=== PATIENT | male | born 1950 | race Caucasian/White ===

== ENCOUNTER 2019-12-27 03:14 | Inpatient (IN) | payer MEDICARE, OTHER ==
[2019-12-27] VITALS (19 sets, daily range): BP systolic 110–167; BP diastolic 72–96
[~2019-12-27] VITALS: Ht 180.3 cm; Wt 136.1 kg
[2019-12-27] MEDS ORDERED: NS IV 1000 ML 0 ML ONE (04:56)
--- NOTE | 2019-12-27 05:25 | Diagnostic Imaging Report ---
Indication: Chest pain Portable chest 5:09 AM Heart size and pulmonary vascularity are normal. There may be some infiltrate or atelectasis of left lung base with questionable effusion. Right lung is clear. IMPRESSION: Questionable left basilar consolidation with effusion that could be pneumonia. Dictated by: Dictated on workstation # [id number]
[2019-12-27] MEDS: NS IV 1000 ML 1,000 ML IV SCH ×3 (05:29→21:53)
[2019-12-27] MEDS ORDERED: HEParin (CATH LAB) 2,000 ML IV ONE (09:24)
[2019-12-27] MEDS ORDERED: LIDOCAINE 1% INJ 20 ML 20 ML VIAL ONE (09:24)
[2019-12-27] MEDS ORDERED: NS IV 1000 ML 1,000 ML ONE (09:24)
[2019-12-27] MEDS ORDERED: fentaNYL INJECTION 100 MCG/2 ML AMP ONE (09:30)
[2019-12-27] MEDS ORDERED: MIDAZOLAM 5 MG/5 ML (VERSED) VIAL ONE (09:30)
[2019-12-27] MEDS ORDERED: VERAPAMIL 5 MG/2 ML (CALAN) VIAL IV ONE (09:30)
[2019-12-27] MEDS ORDERED: HEParin 1000 UNIT/ML (10ML VIAL) FOR BOLUS ONE (09:31)
[2019-12-27] MEDS ORDERED: NITRO DRIP 25000 MCG/D5W 250 ML IV ONE (09:31)
[2019-12-27] MEDS ORDERED: ADENOSINE 90 MG/30 ML (ADENOSCAN) VIAL IV ONE (10:25)
--- NOTE | 2019-12-27 10:57 | NUR ---
Patient to label stitcher approximately 0945. Report given to BISMARK Hernandez ICU step-down.
--- NOTE | 2019-12-27 11:50 | Consultation-Cardiology ---
HPI-Cardiology Cardiology Consultation: Date of Consultation 12/27/19 Date of Admission Attending Physician Radha Michele MD Admitting Physician Shawn Granda DO Consulting Physician Neto TAN MD HPI: Time Seen by a Provider: 09:00 Chief Complaint: Chest pain this is a 69-year-old gentleman with history of active smoking and morbid obesity. He has family history of CAD. He presents with prolonged episode of chest pain for 2 hours. Substernal. No significant radiation. No associated symptoms. No exacerbating or relieving factors. Moderate to severe intensity. Relieved when he got to [facility]. Review of Systems-Cardiology Review of Systems Constitutional: As described under HPI; No As described under HPI, No no symptoms reported, No chills, No fever, No lightheadedness Eyes: No As described under HPI, No no symptoms reported, No blindness, No blurred vision, No contact lenses, No drainage, No decreased acuity, No foreign body sensation, No pain, No vision change Ears/Nose/Throat: No As described under HPI, No no symptoms reported, No chronic hearing loss, No ear discharge, No ear pain, No nasal drainage, No ulcerations Respiratory: No no symptoms reported; As described under HPI; No As described under HPI, No cough, No orthopnea, No shortness of breath, No SOB with excertion Cardiovascular: No no symptoms reported; As described under HPI; No As described under HPI; chest pain; No edema, No irregular heart rate, No lightheadedness, No palpitations Gastrointestinal: No no symptoms reported, No As described under HPI, No abdomen distended, No abdominal pain, No blood streaked bowels, No constipation, No diarrhea, No nausea, No vomiting, No stool coloration changes Genitourinary: No As described under HPI, No burning, No dysuria, No discharge, No frequency, No flank pain, No hematuria, No urgency Skin: No rash, No skin related problems, No ulcerations Psychiatric/Neurological: No anxiety, No depression, No seizure, No focal weakness, No syncope Hematologic: No bleeding abnormalities VPR-[id number]-[id number] Hx Patient Social History Recent Foreign Travel: No Recent Infectious Disease Expo: No Immunizations Up To Date Date of Pneumonia Vaccine: Dec 11, 2019 Date of Influenza Vaccine: Dec 11, 2019 Past Medical History PMH As described under Assessment. Family Medical History Family History: Cardiovascular disease 19 FATHER, Onset:Unknown 19 MOTHER, Onset:Unknown Cataracts 19 MOTHER, Onset:Unknown Congenital heart disease Deafness or hearing loss 19 FATHER, Onset:60 years & older Dementia Diabetes mellitus 19 FATHER, Onset:Unknown G8 BROTHER, Onset:Unknown Glaucoma 19 MOTHER, Onset:Unknown Hypercholesterolemia G8 SISTER, Onset:40's - 50 Hypertension 19 FATHER, Onset:Unknown 19 MOTHER, Onset:Unknown Myocardial infarction 19 FATHER, Onset:50's - 60 Visual disorder 19 FATHER, Onset:Unknown Allergies and Home Medications Allergies Coded Allergies: No Known Allergies (Verified Allergy, Unknown, 12/27/19) Patient Home Medication List Home Medication List Reviewed: Yes Physical Exam-Cardiology Physical Exam Vital Signs/I&O 12/27/19 12/27/19 12/27/19 12/27/19 04:39 04:45 05:00 05:15 Temp 36.8 36.8 Pulse 68 69 61 61 Resp 20 20 B/P (MAP) 138/77 138/77 (97) 129/79 (96) 129/82 (98) Pulse Ox 95 95 O2 Delivery Nasal Cannula Nasal Cannula O2 Flow Rate 1.00 1.00 12/27/19 12/27/19 12/27/19 12/27/19 05:30 05:30 06:30 08:00 Temp 36.2 Pulse 61 62 60 Resp 20 B/P (MAP) 128/78 (95) 119/75 (90) 117/73 (88) Pulse Ox 92 O2 Delivery Nasal Cannula Nasal Cannula O2 Flow Rate 2.00 1.00 12/27/19 12/27/19 12/27/19 08:00 08:02 08:30 Temp 36.3 Pulse 53 61 Resp 18 B/P (MAP) 127/72 (90) Pulse Ox 95 O2 Delivery Nasal Cannula O2 Flow Rate 1.50 1.00 Capillary Refill : Less Than 3 Seconds Constitutional: appears stated age, AAO x 3; No apparent distress; well- developed, well-nourished HEENT: PERRL; No discharge; hearing is well preserved, oral hygience is good; No ulceration, No xanthelasmas are seen Neck: No carotid bruit; carotid pulses are 2 + bilaterally Respiratory: chest is bilaterally symmetric, lungs clear to auscultation Cardiovascular: regular rate-rhythm, S1 and S2; No diastolic murmur, No systolic murmur Gastrointestinal: soft, distended, audible bowel sounds; No spleenomegaly Rectal: deferred Extremities: normal range of motion, non-tender, normal inspection; No clubbing, No cyanosis; no lower extremity edema bilateral; No significant edema Neurologic/Psychiatric: no motor/sensory deficits, alert, normal mood/affect, oriented x 3, power is 5/5 both on sides Skin: normal color, warm/dry; No rash, No ulcerations Data Review Labs Laboratory Tests 12/27/19 07:58: Troponin I 1.449*H A/P-Cardiology Assessment/Admission Diagnosis NSTEMI, Morbid obesity, Active smoking Plan NSTEMI, coronary angiography and possible intervention is recommended. Informed consent was taken. I discussed at length all the risks and complication including . The patient accepted all risk and would like to proceed with coronary angiography and possible intervention. 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 Morbid obesity,defer to the primary team. Active smoking, smoking cessation was strongly recommended Thank you for your consultation. Please call me if you have any questions. Fredis Tan MD, FACP, FACC, FSCAI, FHRS, CCDS Interventional Cardiology Cardiac Electrophysiology Vascular Medicine and Endovascular Interventions Clinical Quality Measures DVT/VTE Risk/Contraindication: Risk Factor Score Per Nursin RFS Level Per Nursing on Admit: 4+=Very High Neto TAN MD Dec 27, 2019 11:50
--- NOTE | 2019-12-27 11:51 | Cardiac Procedure Note-CS/ASA ---
Pre-Procedure Note Pre-Op Procedure Note H&P Reviewed The H&P was reviewed, patient examined and no changes noted. Date H&P Reviewed: Dec 27, 2019 Time H&P Reviewed: 09:30 Conscious Sedation Pre-Proced Time 09:30 ASA Score 3 For ASA 3 and 4: Consider anesthesia and medical clearance. Also, for patients with a history of failed moderate sedation consider anesthesia. Airway Lungs Heart ASA score ASA 1: a normal healthy patient ASA 2: a patient with a mild systemic disease (mid diabetes, controlled hypertension, obesity ASA 3: a patient with a severe systemic disease that limits activity (angina, COPD, prior Myocardial infarction) ASA 4: a patient with an incapacitating disease that is a constant threat to life (CHF, renal failure) ASA 5: a moribund patient not expected to survive 24 hrs. (ruptured aneurysm) ASA 6: a declared brain- patient whose organs are being harvested. For emergent operations, add the letter E after the classification Mallampati Classification Grade 1 Sedation Plan Analgesia, Amnesia, Plan communicated to team members, Discussed options with patient/fam, Discussed risks with patient/fam The patient is an appropriate candidate to undergo the planned procedure, sedation, and anesthesia. The patient immediately re-assessed prior to indication. Neto CHEN MD Dec 27, 2019 11:51
--- NOTE | 2019-12-27 11:51 | Coronary Angiography & PCI ---
Coronary Angiography & PCI DATE OF PROCEDURE: 12/27/19 INDICATION: non-STEMI PREOPERATIVE DIAGNOSIS: non-STEMI POSTOPERATIVE DIAGNOSIS: severe ostial/mid LAD stenosis treated successfully with 2 drug-eluting stents. HISTORY: This is a 69-year-old gentleman with history of active smoking and family history. long episode of chest pain was positive troponin. Working diagnosis of non-STEMI. Therefore, the patient was scheduled for coronary angiography. PROCEDURES PERFORMED: 1.Coronary angiography. 2.Left heart catheterization. 3.PCI to the ostial LAD and mid LAD with 2 drug-eluting stents. 4. FFR to mid LAD COMPLICATIONS: None. SPECIMENS: None. ESTIMATED BLOOD LOSS: 10 mL ANESTHESIA: Conscious sedation ANTICOAGULATION: IV heparin CONTRAST: 253 mL. FLUOROSCOPY: 28.4 minutes. FLOUROSCOPY DOSE: 3449 mgy. PROCEDURE DETAILS: The patient is a 69 male and was brought to the lab associate after informed consent was taken. All the risks and complications were explained in detail; this included the risk of bleeding, vascular damage, stroke, KS and even . The patient was draped and prepped in the usual sterile fashion. Access was gained in the right radial artery with a 6 Croatian sheath. Coronary angiography and left heart catheterization was performed with the Cory catheter. we had difficulty engaging the left main with the Cory catheter however with significant manipulation we were able to engage the left main. FINDINGS: 1.Left main: patent. 2.LAD: severe ostial stenosis.stenosis severity 90 percent. Moderate to severe sequential mid LAD lesions with CLAUDIO 2 flow. 3.Left circumflex artery: patent. 4.RCA: large dominant RCA. Mild slow flow however no focal stenosis. Microvascular dysfunction. 5.Left heart catheterization: LV pressure 93/1 mmHg. LVEDP 3 mmHg. Aortic pressure 91/62 mmHg. Normal LV function with no wall motion abnormalities. No gradient across the aortic valve. RECOMMENDATIONS: PCI to ostial LAD is recommended. FFR to the mid LAD is recommended. INTERVENTION DETAILS: we first tried a JL 3.5 but were not able to engage the left main. We then went in with an EBU 3.5 guide however fever still unable to engage the left main. We finally engaged with a JL4 guide catheter. We then tried to cross the lesion with the pressure wire however we were not able to cross. We therefore used a whisper extra-support wire, and were able to cross the lesion. We put the tip of the wire in the distal LAD. Direct stenting of the ostial LAD with a Xience Felisha 3 x 18 mm drug-eluting stent at 16 radha for 22 seconds. excellent results with no residual stenosis. We then crossed the lesion in the mid LAD with the FFR wire and started at adenosine 140 g per KG per minute. Lowest FFR was 0.75 which is significant. The pressure wire was taken out. We tried to advance a Xience Felisha 2.5 x 28 mm stent, however, we were not able to cross into the mid LAD. Therefore we took another BMW wire and placed the tip of the wire in the distal LAD. We now had the whisper wire and the BMW wire in the LAD. With the support of 2 wires we were able to advance the drug-eluting stent in the mid LAD and deployed it at 16 radha for 31 seconds. The proximal portion was postdilated with the 3 x 18 stent balloon at 16 radha for 10 seconds. Excellent results with no residual stenosis and CLAUDIO-3 flow. Nitroglycerin 200 g IC was given. Patient tolerated procedure well and did not have any complication. He left the catheter lab in stable hemodynamics. CONCLUSIONS: 1. Non-STEMI, severe ostial stenosis treated successfully with a drug-eluting stent. 2. Moderate to severe sequential stenosis in the mid LAD, FFR 0.75. Therefore treated with a drug-eluting stent. 3. Dual antiplatelet therapy for at least a year. Aggressive secondary prevention measures. 4. Smoking cessation was strongly recommended. 5. Aggressive IV hydration. Fredis Tan MD, FACP, FACC, [facility] Interventional Cardiology Neto TAN MD Dec 27, 2019 11:51
[2019-12-27] MEDS ORDERED: PATIENT MAY USE OWN MEDS, ALL PO SCH (12:00)
--- NOTE | 2019-12-27 12:16 | NUR ---
1148 PT TO ROOM 510 VIA BED FROM HEART CATH, Drake ABBOTT RN IN ROOM AND REPORT RECEIVED FROM Drake ABBOTT RN. PT S/P HEART CATH TO RIGHT RADIAL INSERTION SIGHT, PERIPHERAL PULSES +/+, NO C/O OF PAIN, CALL LIGHT AND OTHER PERSONAL ITEMS IN ROOM, WILL CONTINUE TO MONITOR.
--- NOTE | 2019-12-27 15:07 | History & Physical ---
History of Present Illness History of Present Illness Reason for visit/HPI 69 yo M transferred from [facility] for chest pain. Patient reports he has had acid indigestion before so he sat up and the pain improved but when he laid back down- the chest pain re-occurred. So he decided to go to the ER. Chest pain was central and surrounding chest. Denies any radiation or other symptoms just GERD symptoms. Denies loss of consciousness or falls or injuries. Pt reports he does not smoke cigarettes. Pt's PCP is Dr. Granda in [place]. This afternoon- patient reports he is pain free and has no complaints at this time. Date of Admission Dec 27, 2019 at 04:17 Date Seen by a Provider: Dec 27, 2019 Time Seen by a Provider: 15:30 I consulted on this patient on 12/27/19 15:04 Attending Physician Radha Michele MD Admitting Physician Shawn Granda DO Consult Allergies and Home Medications Allergies Coded Allergies: No Known Allergies (Verified Allergy, Unknown, 12/27/19) Home Medications Citalopram Hydrobromide 20 Mg Tablet, 20 MG PO DAILY, (Reported) Losartan Potassium 100 Mg Tablet, 100 MG PO DAILY, (Reported) Patient Home Medication List Home Medication List Reviewed: Yes Past Luerrtu-Bweuna-Xnctzk Hx Patient Social History Recent Foreign Travel: No Contact w/other who traveled: No Recent Infectious Disease Expo: No Immunizations Up To Date Date of Pneumonia Vaccine: Dec 11, 2019 Date of Influenza Vaccine: Dec 11, 2019 Family Medical History Family Hx: Cardiovascular disease 19 FATHER, Onset:Unknown 19 MOTHER, Onset:Unknown Cataracts 19 MOTHER, Onset:Unknown Congenital heart disease Deafness or hearing loss 19 FATHER, Onset:60 years & older Dementia Diabetes mellitus 19 FATHER, Onset:Unknown G8 BROTHER, Onset:Unknown Glaucoma 19 MOTHER, Onset:Unknown Hypercholesterolemia G8 SISTER, Onset:40's - 50 Hypertension 19 FATHER, Onset:Unknown 19 MOTHER, Onset:Unknown Myocardial infarction 19 FATHER, Onset:50's - 60 Visual disorder 19 FATHER, Onset:Unknown Review of Systems Review of Systems General: No Night Sweats HEENT: No Head Aches, No Visual Changes Pulmonary: No Dyspnea, No Cough Cardiovascular: Chest Pain; No: Palpitations, Orthopnea Gastrointestinal: No: Nausea, Vomiting Genitourinary: No Dysuria Musculoskeletal: No: neck pain Neurological: No: Weakness Physical Exam Vital Signs Vital Signs - First Documented 12/27/19 04:39 Temp 36.8 Pulse 68 Resp 20 B/P (MAP) 138/77 Pulse Ox 95 O2 Delivery Nasal Cannula O2 Flow Rate 1.00 Capillary Refill : Less Than 3 Seconds Height, Weight, BMI Height: '" Weight: lbs. oz. kg; 40.94 BMI Method: General Appearance: No Apparent Distress HEENT: PERRL/EOMI Neck: Non Tender, Supple Respiratory: Chest Non Tender, Lungs Clear, Normal Breath Sounds, No Accessory Muscle Use, No Respiratory Distress Cardiovascular: Regular Rate, Rhythm Gastrointestinal: Normal Bowel Sounds, Non Tender, Soft Rectal: Deferred Back: Normal Inspection Extremity: Non Tender, No Calf Tenderness, Pedal Edema (trace) Neurologic/Psychiatric: Alert, Oriented x3 Skin: Normal Color, Warm/Dry Assessment/Plan Assessment/Plan Admission Dx NSTEMI Coronary artery disease Admission Status: Inpatient Order (span 2 midnights) Reason for Inpatient Admission: Patient admitted for NSTEMI and found to have severe ostial/mid LAD stenosis requiring intervention. He will require monitoring over 2 midnights prior to being discharge to home. Assessment and Plan 12/27/19- Chest pain- resolved/improved. Coronary artery disease- severe ostial/mid LAD stenosis treated with PCI to the ostial LAD and mid LAD with 2 drug-eluting stents. -risk factors: lifestyle, family history, obesity -medication management- aspirin, plavix, metoprolol, lisinopril, statin. -lifestyle modification- improve diet and exercise. Dispo: monitor overnight- discharge planning. Should be able to d/c to home over the weekend. Problems: (1) CAD (coronary artery disease) (2) Chest pain (3) Obesity, morbid, BMI 40.0-49.9 (4) HTN (hypertension) Clinical Quality Measures DVT/VTE Risk/Contraindication: Risk Factor Score Per Nursin RFS Level Per Nursing on Admit: 4+=Very High MILE ROBERTSON MD Dec 27, 2019 15:07
[2019-12-27] MEDS ORDERED: LOSA100T57 PO (15:49)
[2019-12-27] MEDS ORDERED: CITA20TA9 PO (15:49)
--- NOTE | 2019-12-27 16:10 | NUR ---
SPOKE WITH PTS (JAMES) AND WENT THRU THE EXT MED HISTORY TO COMPLETE THE MED REC JAMES LET ME KNOW THE PT ONLY TAKING LOSARTAN AND CITALOPRAM OTC MEDS: NONE
[2019-12-27] MEDS: meTOprolol TARTRATE 25 MG (LOPRESSOR) TABLET PO SCH (20:35)
[2019-12-28 03:35] LABS: HEMOGLOBIN 13.6 g/dL (13.3-17.7)
[2019-12-28 03:48] LABS: CHLORIDE 107 MMOL/L (98-107); POTASSIUM 4.2 MMOL/L (3.6-5.0); SODIUM 137 MMOL/L (135-145)
[2019-12-28 03:49] LABS: CALCIUM 8.2 MG/DL (8.5-10.1)
[2019-12-28 03:50] LABS: GLUCOSE 103 MG/DL (70-105)
[2019-12-28 03:51] LABS: CARBON DIOXIDE 20 MMOL/L (21-32)
[2019-12-28 03:54] LABS: BUN/CREATININE RATIO 13; CREATININE SERUM 1.04 MG/DL (0.60-1.30); GFR ESTIMATED > 60
[2019-12-28 04:00] VITALS: BP 125/78
[2019-12-28] MEDS: NS IV 1000 ML 1,000 ML IV SCH ×2 (05:17)
[2019-12-28 08:45] VITALS: BP 138/82
[2019-12-28] MEDS: meTOprolol TARTRATE 25 MG (LOPRESSOR) TABLET PO SCH (08:46)
[2019-12-28] MEDS ORDERED: CLOPIDOGREL 75 MG (PLAVIX) TABLET PO SCH (09:00)
[2019-12-28] MEDS ORDERED: lisINopril 10 MG (PRINIVIL) TABLET PO SCH (09:00)
[2019-12-28] MEDS ORDERED: ASPIRIN E.C. 81 MG (ECOTRIN) TAB PO SCH (09:00)
[2019-12-28] MEDS ORDERED: lisINopril 40 MG (PRINIVIL) TABLET PO SCH (09:00)
[2019-12-28] MEDS ORDERED: ATOR80TA76 PO (10:34)
[2019-12-28] MEDS ORDERED: ASPI-1238 PO (10:34)
[2019-12-28] MEDS ORDERED: METO-333 PO (10:34)
[2019-12-28] MEDS ORDERED: CLOP75TA28 PO (10:34)
--- NOTE | 2019-12-28 10:38 | Discharge Summary ---
Discharge Summary Hospital Course Was the Problem List Reviewed?: Yes Problems/Dx: (1) CAD (coronary artery disease) (2) Chest pain (3) Obesity, morbid, BMI 40.0-49.9 (4) HTN (hypertension) Hospital Course Date of Admission: Dec 27, 2019 at 04:17 Admission Diagnosis : (1) CAD (coronary artery disease) (2) Chest pain (3) Obesity, morbid, BMI 40.0-49.9 (4) HTN (hypertension) Family Physician/Provider: Shawn Granda DO Date of Discharge: 12/28/19 Discharge Diagnosis: (1) CAD (coronary artery disease) (2) Chest pain (3) Obesity, morbid, BMI 40.0-49.9 (4) HTN (hypertension) Hospital Course: 69 yo M transferred from [facility] for chest pain. Patient reports he has had acid indigestion before so he sat up and the pain improved but when he laid back down- the chest pain re-occurred. So he decided to go to the ER. Chest pain was central and surrounding chest. Denies any radiation or other symptoms just GERD symptoms. Denies loss of consciousness or falls or injuries. Pt reports he does not smoke cigarettes. Pt's PCP is Dr. Granda in [place]. Dr. Tan consulted.- Found to have severe ostial/mid LAD stenosis treated with PCI to the ostial LAD and mid LAD with 2 drug-eluting stents. -risk factors: lifestyle, family history, obesity -medication management- aspirin, plavix, metoprolol, lisinopril, statin. -lifestyle modification- improve diet and exercise. Chest pain resolved. Patient was deemed stable for discharge 12/28/19. He will follow up with Dr. Granda. 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 Labs and Pending Lab Test: Laboratory Tests 12/28/19 03:16: White Blood Count 8.0, Red Blood Count 4.24L, Hemoglobin 13.6, Hematocrit 42, Mean Corpuscular Volume 98, Mean Corpuscular Hemoglobin 32, Mean Corpuscular Hemoglobin Concent 33, Red Cell Distribution Width 12.6, Platelet Count 193, Mean Platelet Volume 10.0, Sodium Level 137, Potassium Level 4.2, Chloride Level 107, Carbon Dioxide Level 20L, Anion Gap 10, Blood Urea Nitrogen 14, Creatinine 1.04, Estimat Glomerular Filtration Rate > 60, BUN/Creatinine Ratio 13, Glucose Level 103, Calcium Level 8.2L, Troponin I 1.849*H Home Meds Active Aspirin EC (Aspirin) 81 Mg Tablet.dr 81 Mg PO DAILY Metoprolol Tartrate 25 Mg Tablet 25 Mg PO BID Atorvastatin Calcium 80 Mg Tablet 80 Mg PO HS Clopidogrel (Clopidogrel Bisulfate) 75 Mg Tablet 75 Mg PO DAILY Reported Citalopram HBr (Citalopram Hydrobromide) 20 Mg Tablet 20 Mg PO DAILY Losartan Potassium 100 Mg Tablet 100 Mg PO DAILY Assessment/Pt Instructions new prescriptions sent to [facility] -follow up/establish care with Dr. Napoles (if Dr. Napoles is available as patient has family that goes to Dr. Napoles) -return to ER if chest pain returns. Discharge Planning: >30 minutes discharge planning Discharge Instructions Discharge Diet: Cardiac Diet Activity as Tolerated: Yes (see post cardiac intervention restrictions.) Discharge Physical Examination Vital Signs Vital Signs Date Time Temp Pulse Resp B/P (MAP) Pulse Ox O2 Delivery O2 Flow Rate FiO2 12/28/19 08:45 36.2 69 18 138/82 (100) 94 Room Air 12/27/19 12:30 2.00 General Appearance: No Apparent Distress, WD/WN HEENT: PERRL/EOMI Respiratory: Chest Non Tender, Lungs Clear, Normal Breath Sounds Cardiovascular: Regular Rate, Rhythm Gastrointestinal: Non Tender, Soft Extremity: No Calf Tenderness Skin: Warm/Dry Neurologic/Psychiatric: Alert, Oriented x3 Allergies: Coded Allergies: No Known Allergies (Verified Allergy, Unknown, 12/27/19) Discharge Summary Date of Admission Dec 27, 2019 at 04:17 Date of Discharge Discharge Diagnosis (1) CAD (coronary artery disease) (2) Chest pain (3) Obesity, morbid, BMI 40.0-49.9 (4) HTN (hypertension) Clinical Quality Measures DVT/VTE Risk/Contraindication: Risk Factor Score Per Nursin RFS Level Per Nursing on Admit: 4+=Very High MILE ROBERTSON MD Dec 28, 2019 10:37
[2019-12-28 11:27] VITALS: BP 126/79
--- NOTE | 2019-12-28 15:22 | Cardiology Progress Note ---
Cardiology SOAP Progress Note Subjective: No further chest pain. Objective: I&O/Vital Signs 12/28/19 12/28/19 12/28/19 12/28/19 04:00 07:00 08:00 08:45 Temp 36.1 36.2 Pulse 70 66 69 Resp 18 18 B/P (MAP) 125/78 (94) 138/82 (100) Pulse Ox 96 94 94 O2 Delivery Room Air Room Air Room Air 12/28/19 12/28/19 11:27 12:49 Temp 36.1 Pulse 55 65 Resp 16 B/P (MAP) 126/79 (95) Pulse Ox 95 O2 Delivery Room Air 12/28/19 00:00 Intake Total 825 ml Balance 825 ml Constitutional: appears stated age, AAO x 3; No apparent distress; well- developed, well-nourished Respiratory: chest is bilaterally symmetric, lungs clear to auscultation Cardiovascular: regular rate-rhythm, S1 and S2; No diastolic murmur, No systolic murmur Gastrointestional: soft, distended, audible bowel sounds; No spleenomegaly Extremities: normal range of motion, non-tender, normal inspection; No clubbing, No cyanosis; no lower extremity edema bilateral; No significant edema Neurologic/Psychiatric: no motor/sensory deficits, alert, normal mood/affect, oriented x 3, power is 5/5 both on sides Skin: normal color, warm/dry; No rash, No ulcerations Results/Procedures: Labs Laboratory Tests 12/28/19 03:16: White Blood Count 8.0, Red Blood Count 4.24L, Hemoglobin 13.6, Hematocrit 42, Mean Corpuscular Volume 98, Mean Corpuscular Hemoglobin 32, Mean Corpuscular Hemoglobin Concent 33, Red Cell Distribution Width 12.6, Platelet Count 193, Mean Platelet Volume 10.0, Sodium Level 137, Potassium Level 4.2, Chloride Level 107, Carbon Dioxide Level 20L, Anion Gap 10, Blood Urea Nitrogen 14, Creatinine 1.04, Estimat Glomerular Filtration Rate > 60, BUN/Creatinine Ratio 13, Glucose Level 103, Calcium Level 8.2L, Troponin I 1.849*H A/P: Assessment/Dx: NSTEMI, Morbid obesity, Active smoking Plan: NSTEMI, coronary angiography showed severe ostial and mid LAD stenosis which was treated successfully with 2 drug-eluting stents. Long-term dual antiplatelet therapy. Beta trupti, angiotensin receptor trupti and high-dose statin therapy. Patient will follow with outpatient organizational research consultant. Morbid obesity,defer to the primary team. Active smoking, smoking cessation was strongly recommended Thank you for your consultation. Please call me if you have any questions. Fredis Tan MD, FACP, FACC, FSCAI, FHRS, CCDS Interventional Cardiology Cardiac Electrophysiology Vascular Medicine and Endovascular Interventions Neto TAN MD Dec 28, 2019 15:22
== END 2019-12-28 13:20 | disposition home or self-care (01) | DRG 247 ==
LOC: 4TH 04:17 → CSD 10:45
PROVIDERS: ADMIT Internal Medicine; ATTEND Family Medicine
PROC: 027035Z Dilation of Coronary Artery, One Artery with Two Drug-eluting Intraluminal Devices, Percutaneous Approach (ICD-10-PCS; principal; 2019-12-27)
PROC: 4A023N7 Measurement of Cardiac Sampling and Pressure, Left Heart, Percutaneous Approach (ICD-10-PCS; 2019-12-27)
PROC: B2111ZZ Fluoroscopy of Multiple Coronary Arteries using Low Osmolar Contrast (ICD-10-PCS; 2019-12-27)
PROC: 4A033BC Measurement of Arterial Pressure, Coronary, Percutaneous Approach (ICD-10-PCS; 2019-12-27)
DX: I21.4 Non-ST elevation (NSTEMI) myocardial infarction (principal); Z68.41 Body mass index [BMI] 40.0-44.9, adult; I25.10 Atherosclerotic heart disease of native coronary artery without angina pectoris; K21.9 Gastro-esophageal reflux disease without esophagitis; Z87.891 Personal history of nicotine dependence; E66.01 Morbid (severe) obesity due to excess calories
CPT/HCPCS: 36415; 71045; 80048; 84484; 85027; 85347; 93005; 93306; 93458

== ENCOUNTER 2020-03-03 05:34 | Outpatient (RCR) | payer MEDICARE, OTHER ==
[~2020-03-03] VITALS: Ht 180.3 cm; Wt 125.4 kg
[~2020-03-03 05:34] MED LIST: ASPI-1238 PO; ASPI-999 PO; ATOR80TA76 PO; CITA20TA9 PO; CLOP75TA28 PO; LOSA100T57 PO; METO-333 PO; MULT-1104 PO
== END 2020-03-03 09:50 | disposition home or self-care (01) ==
LOC: PREOP 05:34
PROVIDERS: ATTEND Surgery
DX: Z01.818 Encounter for other preprocedural examination (principal); K80.20 Calculus of gallbladder without cholecystitis without obstruction; Z20.822 Contact with and (suspected) exposure to COVID-19
CPT/HCPCS: 87635

== ENCOUNTER 2020-03-05 11:59 | Day surgery (SDC) | payer MEDICARE, OTHER ==
[2020-03-05] VITALS (10 sets, daily range): BP systolic 102–139; BP diastolic 56–80
[~2020-03-05] VITALS: Ht 180.3 cm; Wt 125.4 kg
--- NOTE | 2020-03-05 12:08 | Progress Note-Pre Operative ---
Pre-Operative Progress Note H&P Reviewed The H&P was reviewed, patient examined and no changes noted. Date Seen by Provider: Mar 05, 2020 Time Seen by Provider: 12:05 Date H&P Reviewed: Mar 05, 2020 Time H&P Reviewed: 12:05 Pre-Operative Diagnosis: chronic calculous cholecystitis JALEN BOSTON MD Mar 05, 2020 12:08
--- NOTE | 2020-03-05 12:09 | Discharge Inst-Surgical ---
D/C Lap Instructions-DARVIN New, Converted, or Re-Newed RX: RX on Chart Follow Up Appt in 2 weeks Activity as tolerated No driving for 24 hours No driving while on pain medications Incentive Spirometry use every 2 hours while awake Regular Diet Symptoms to Report: Fever over 101 degree F, Nausea/Vomiting Infection Signs and Symptoms to report: Increased redness, Foul odor of wound, Increased drainage Bathing instructions: May shower Operative Area Clean/Dry; Keep incision clean/dry If any problems/questions: Contact your physician or go to Emergency Room JALEN BSOTON MD Mar 05, 2020 12:09
[2020-03-05] MEDS ORDERED: oxyCODONE/APAP 5/325MG (PERCOCET 5) TABLET PO PRN (12:15)
[2020-03-05] MEDS ORDERED: ONDANSETRON 4 MG/2 ML (SDV) Z0FRAN IVP PRN ×2 (12:15→15:15)
[2020-03-05] MEDS ORDERED: morphine INJ 10 MG/ML 1ML (SYR OR VIAL) IVP PRN ×2 (12:15)
[2020-03-05] MEDS ORDERED: ACETAMINOPHEN 325 MG TABLET PO PRN (12:15)
[2020-03-05] MEDS ORDERED: LIDOCAINE/EPI 1%-1:100,000 (XYLOCAINE) 50 ML ONE (12:20)
[2020-03-05] MEDS ORDERED: CATHETER FLUSH 10 ML SYR IV PRN (12:30)
[2020-03-05] MEDS ORDERED: ceFAZolin 2 GM IV Premixed 50 ML IV ONE (12:30)
[2020-03-05] MEDS: LACTATED RINGERS 1,000 ML IV PRN ×2 (12:36→14:18)
[2020-03-05 12:48] LABS: BASOPHILS # (AUTO) 0.1 10^3/uL (0.0-0.1); BASOPHILS % (AUTO) 1 % (0-10); EOSINOPHILS # (AUTO) 0.4 10^3/uL (0.0-0.3); EOSINOPHILS % (AUTO) 7 % (0-10); HEMATOCRIT 41 % (40-54); HEMOGLOBIN 13.6 g/dL (13.3-17.7); LYMPHOCYTES # (AUTO) 1.6 10^3/uL (1.0-4.0); LYMPHOCYTES % (AUTO) 27 % (12-44); MEAN CORPUSCULAR HEMOGLOBIN 32 pg (25-34); MEAN CORPUSCULAR HGB CONC 33 g/dL (32-36); MEAN CORPUSCULAR VOLUME 97 fL (80-99); MEAN PLATELET VOLUME 11.1 fL (9.0-12.2); MONOCYTES # (AUTO) 0.6 10^3/uL (0.0-1.0); MONOCYTES % (AUTO) 10 % (0-12); NEUTROPHILS # (AUTO) 3.2 10^3/uL (1.8-7.8); NEUTROPHILS % (AUTO) 55 % (42-75); PLATELET COUNT 221 10^3/uL (130-400); WHITE BLOOD COUNT 5.9 10^3/uL (4.3-11.0)
[2020-03-05] MEDS ORDERED: LIDOCAINE PF 2% 5 ML (XYLOCAINE) VIAL ONE (12:49)
[2020-03-05] MEDS ORDERED: ROCURONIUM 10 MG/ML 5 ML SYRINGE IV ONE (12:49)
[2020-03-05] MEDS ORDERED: proPOfol 200 MG/20 ML (DIPRIVAN) VIAL IV ONE (12:49)
[2020-03-05] MEDS ORDERED: ONDANSETRON 4 MG/2 ML (SDV) Z0FRAN ONE (12:49)
[2020-03-05] MEDS ORDERED: fentaNYL INJECTION 100 MCG/2 ML AMP ONE (12:50)
[2020-03-05] MEDS ORDERED: SEVOFLURANE (ULTANE) 15 ML INHAL SOLN ONE (12:50)
[2020-03-05] MEDS ORDERED: HYDR-4227 PO (13:10)
--- NOTE | 2020-03-05 14:55 | Progress Note-Post Operative ---
Post-Operative Progess Note Surgeon (s)/Mediator (s) Surgeon JALEN BOSOTN MD Mediator: radha sam COATING MACHINE OPERATOR Pre-Operative Diagnosis chronic calculous cholecystitis Post-Operative Diagnosis same Procedure & Operative Findings Date of Procedure 03/05/20 Procedure Performed/Findings laparoscopic cholecytectomy Anesthesia Type get Estimated Blood Loss Estimated blood loss (mL): minimal Specimens/Packing Specimens Removed gallbladder JALEN BOSTON MD Mar 05, 2020 14:55
[2020-03-05] MEDS ORDERED: NEOSTIGMINE 3 MG/3 ML VIAL ONE (14:58)
[2020-03-05] MEDS ORDERED: GLYCOPYRROLATE 0.2 MG/ML (ROBINUL) 2 ML VIAL ONE (14:58)
[2020-03-05] MEDS ORDERED: PHENYLEPHRINE 100 MCG/ML 10 ML (ANESTHESIA) SYR ONE (14:58)
[2020-03-05] MEDS ORDERED: MEPERIDINE (DEMEROL) INJ 50 MG/ML IVP ONE (15:15)
[2020-03-05] MEDS ORDERED: fentaNYL INJECTION 100 MCG/2 ML AMP IVP ONE (15:15)
--- NOTE | 2020-03-11 07:02 | Anesthesia-General Post-Op ---
General Significant Intra-Op Events Notes Late Entry: 03/05/2020 @1545 Patient Condition Mental Status/LOC: Same as Preop Cardiovascular: Satisfactory Nausea/Vomiting: Absent Respiratory: Satisfactory Pain: Controlled Complications: Absent Post Op Complications Complications None Follow Up Care/Instructions Patient Instructions None needed. Anesthesia/Patient Condition Patient Condition Patient is doing well, no complaints, stable vital signs, no apparent adverse anesthesia problems. No complications reported per nursing. RIVERA DAIGLE CRNA Mar 11, 2020 07:02
--- NOTE | 2020-03-13 20:49 | OPERATIVE REPORT ---
DATE OF SERVICE: 03/05/2020 ATTENDING PRIMARY CARE PHYSICIAN: Shawn Granda DO PREOPERATIVE DIAGNOSIS: Symptomatic chronic calculous cholecystitis. POSTOPERATIVE DIAGNOSIS: Symptomatic chronic calculous cholecystitis. PROCEDURE: Laparoscopic cholecystectomy. SURGEON: Jalen Boston MD. LUMBER STRAIGHTENER: Jeffrey Khan APRN. ANESTHESIA: General endotracheal. ESTIMATED BLOOD LOSS: Minimal. FINDINGS: Distended gallbladder, no gallbladder wall thickening. DISPOSITION: The patient tolerated the procedure well. INDICATIONS: The patient is a 69-year-old male who we had seen in 11/2019 for abdominal bloating, diarrhea usually after meals. We have tried conservative management; however, stated that the last 4 weeks, his symptoms have worsened. He reports that after eating a meal, he would have pain in the right lower abdominal quadrant as well as abdominal bloating at night. He does not report any vomiting. An ultrasound was performed, which did show biliary sludge. DESCRIPTION OF PROCEDURE: The patient was brought to the operating room, laid supine on the table. After adequate IV pain and sedative medications and general endotracheal intubation, the abdomen was prepped and draped in standard surgical fashion. A 0.5% Marcaine with epinephrine was used to anesthetize overlying skin in the left upper abdominal quadrant and a transverse skin incision made using 15 blade. An 0 silk suture was applied to the medial aspect of the incision for retraction and a Veress needle inserted with a low opening pressure of 0 mmHg and the abdomen was then insufflated to 15 mmHg pressure. The Veress needle removed and a 5 mm XL trocar placed followed by a 5 mm 45-degree angle laparoscope visualizing the peritoneal cavity. A 4-quadrant abdominal exploration was performed. There was some hepatomegaly. There was a distended gallbladder, no gallbladder wall thickening. Under direct visualization, we then proceeded to place a supraumbilical 10 mm port after the skin and peritoneal lining were anesthetized using 0.5% Marcaine with epinephrine and a transverse skin incision made using a 15 blade. In a similar manner, a right upper abdominal quadrant 5 mm port was placed. The patient was then placed in reverse Trendelenburg position as well as plane right side up, left side down. The fundus of the gallbladder was then retracted anteriorly and superiorly. The hepatoduodenal ligament was then opened using blunt dissection as well as electrocautery on the hook instrument. The entire critical view of safety was identified including the triangle of Calot as well as the cystic duct and artery as only two structures going into the gallbladder as well as the cystic plate behind the proximal gallbladder. A timeout was then taken, and the cystic duct and artery were then clipped proximally and distally and cut with EndoShears. The gallbladder was then dissected off the liver bed using cautery with visualization of good hemostasis as well as no leaking ducts of Luschka. The gallbladder was removed through the 10 mm port site using an EndoCatch bag. The 10 mm port site fascia and peritoneum were then closed under direct visualization using a Mathieu-Laura device and 0 Vicryl suture. The abdomen was desufflated and the remaining ports removed. All skin incisions were closed using 4-0 Monocryl running subcuticular sutures. Wounds were then cleaned and covered with Dermabond. The patient tolerated the procedure well. We will start IV normal pain medication as well as a clear liquid diet. When he is tolerating clears, has good pain control with oral pain medications, he is ambulating well, we will discharge him home and he will be instructed to do no heavy lifting or exertion for the next two weeks. Job ID: [id number] DocumentID: [id number] Dictated Date: 03/13/2020 13:35:45 [email or web address] Software Engineer Date: 03/13/2020 20:47:58 Dictated By: JALEN BOSTON MD
== END 2020-03-05 17:23 | disposition home or self-care (01) ==
LOC: SDC 11:59
PROVIDERS: ATTEND Surgery
DX: K80.12 Calculus of gallbladder with acute and chronic cholecystitis without obstruction (principal); I10 Essential (primary) hypertension; I25.10 Atherosclerotic heart disease of native coronary artery without angina pectoris; G47.33 Obstructive sleep apnea (adult) (pediatric); F41.9 Anxiety disorder, unspecified; E78.00 Pure hypercholesterolemia, unspecified; Z79.899 Other long term (current) drug therapy; Z79.82 Long term (current) use of aspirin; Z95.5 Presence of coronary angioplasty implant and graft; Z83.3 Family history of diabetes mellitus
CPT/HCPCS: 36415; 85025; 87081; 88304

== ENCOUNTER 2020-07-07 06:27 | Outpatient (CLI) | payer MEDICARE, OTHER ==
[~2020-07-07] VITALS: Ht 180.3 cm; Wt 122.7 kg
[~2020-07-07 06:27] MED LIST changes: +HYDR-4227 PO
== END 2020-07-07 10:14 | disposition home or self-care (01) ==
LOC: PREOP 06:27
PROVIDERS: ATTEND Specialist
DX: Z01.818 Encounter for other preprocedural examination (principal)

== ENCOUNTER 2020-07-10 06:49 | Day surgery (SDC) | payer MEDICARE, OTHER ==
[~2020-07-10] VITALS: Ht 180.3 cm; Wt 122.7 kg
[2020-07-10] MEDS ORDERED: PHENYLEPHRINE 10% OPHTH (NEO-SYN) 5 ML BTL OU PRN (07:00)
[2020-07-10] MEDS ORDERED: TROPICAMIDE 1% OPH SOLN (MYDRIACYL) 15 ML BTL OU PRN (07:00)
[2020-07-10 07:05] VITALS: BP 124/75
[2020-07-10] MEDS: TETRACAINE 0.5% OPHTH SOLN 4 ML BTL (SINGLE DOSE ONLY) OU PRN ×3 (07:09→07:15)
--- NOTE | 2020-07-10 07:52 | Ophthalmologist Pre-Op Note ---
Pre-Operative Progress Note H&P Reviewed The H&P was reviewed, patient examined and no changes noted. Date H&P Reviewed: Jul 10, 2020 Time H&P Reviewed: 07:52 Pre-Op Dx Secondary Cataract, Right Eye DENY ESTRADA MD Jul 10, 2020 07:52
--- NOTE | 2020-07-10 08:00 | Ophthalmology Operative Report ---
YAG Capsulotomy PREOPERATIVE DIAGNOSIS: Secondary Cataract Right Eye POSTOPERATIVE DIAGNOSIS: Secondary Cataract Right Eye PROCEDURE: YAG Capsulotomy, right eye SURGEON: Emigdio Estrada ANESTHESIA: Topical anesthesia COMPLICATIONS: None ESTIMATED BLOOD LOSS: Minimal DESCRIPTION OF PROCEDURE: After proper informed consent was obtained, the patient's, a 69 male, right eye received one drop of Tropicamide and one drop of Tetracaine. The patient was then placed at the YAG laser and using a power of [ 3.9] millijoules and [ 26] bursts were used to fashion a central capsulotomy. The patient tolerated the procedure well without complications. EMIGDIO ESTRADA MD Jul 10, 2020 08:00
== END 2020-07-10 07:58 | disposition home or self-care (01) ==
LOC: SDC 06:49
PROVIDERS: ATTEND Specialist
DX: H26.491 Other secondary cataract, right eye (principal); Z87.891 Personal history of nicotine dependence

== ENCOUNTER → 2022-03-11 | Outpatient (CLI) | payer MEDICARE, OTHER | LOC: CARD 08:54 | PROVIDERS: ATTEND Nurse Practitioner Family | DX: I51.7 Cardiomegaly (principal); I25.10 Atherosclerotic heart disease of native coronary artery without angina pectoris | CPT/HCPCS: 93306 ==

== ENCOUNTER → 2022-03-15 | Outpatient (CLI) | payer MEDICARE, OTHER ==
[~2022-03-15] VITALS: Ht 180 cm; Wt 127.0 kg
[~2022-03-15] MED LIST changes: +CATHETER FLUSH 10 ML SYR IVP PRN; +REGADENOSON 0.4 MG/5 ML SYR (LEXISCAN) IV ONE
[2022-03-15 09:24] VITALS: BP 110/80
== END ==
LOC: CARD 07:26
PROVIDERS: ATTEND Nurse Practitioner Family
DX: I25.10 Atherosclerotic heart disease of native coronary artery without angina pectoris (principal)
CPT/HCPCS: 78452; 93017; A9502